=== PATIENT | female | born 1995 | race Caucasian/White ===

== ENCOUNTER 2024-02-26 20:00 | Emergency (ER) | payer BC, SELFPAY ==
--- NOTE | ~2024-02-26 | US_ITS ---
EXAMINATION: US OB transvaginal DATE: 02/26/2024 22:35 INDICATION: Vaginal bleeding during first trimester TECHNIQUE: Real-time pelvic ultrasound utilizing both a transvaginal and transabdominal probe was pe rformed. The interpreting radiologist was not present for the study. COMPARISON: None. FINDINGS: The uterus measures 9.1 x 5.1 x 5.9 cm. There is an intrauterine gestational sac with double decidua l sign and internal yolk sac but no discernible pole yet apparent. The mean sac diameter measur es 8 mm, which correlates with an estimated gestational age of 5 weeks and 4 days. The right ovary measures 4.5 x 2.3 x 2.6 cm. The left ovary measures 2.6 x 1.9 x 2.1 cm. There are a few subcentimeter anechoic follicles in both ovaries. Larger 1.5 similar anechoic likely corpus luteu m cyst at the right ovary. Vascular flow identified at both ovaries on color Doppler. There is no dorota e fluid in the pelvis. IMPRESSION: 1. Single intrauterine gestational sac with yolk sac but no discernible pole which likely due t o early stage of . 2. Gestational age by ultrasound based on mean sac diameter of 5 weeks 4 day(s) +/- 4 day(s) with ul trasound estimated date of delivery (RITESH) of 10/24/2024. Reviewed, dictated and finalized at location A. IMPRESSION: 1. Single intrauterine gestational sac with yolk sac but no discernible p ole which likely due to early stage of . 2. Gestational age by ultrasound based on mean sac diameter of 5 weeks 4 day(s ) +/- 4 day(s) with ultrasound estimated date of delivery (RITESH) of 10/24/2024.
[2024-02-26 20:01] VITALS: BP 143/81; PULSE 91; RESP 15; TEMP 36.4; O2SAT 100
[2024-02-26 20:38] LABS: Basophils Percent Auto 0.4 % (0.2-1.2); Eosinophils Absolute Auto 0.2 K/mm3 (0-0.3); Eosinophils Percent Auto 1.9 % (0-4.4); Hematocrit 41.5 % (37.0-47.0); Hemoglobin 14.2 g/dL (12.0-15.0); Immature Granulocyte Absolute 0.02 K/mm3 (0.00-0.031); Immature Granulocyte Percent A 0.2 % (0-0.5); Lymphocytes Absolute Auto 2.67 K/mm3 (0.9-3.2); Lymphocytes Percent Auto 29.6 % (18.3-44.2); Mean Corpuscular HGB Conc 34.2 g/dl (32-36); Mean Corpuscular Hemoglobin 29.9 pg (26-34); Mean Corpuscular Volume 87.4 fl (80-100); Mean Platelet Volume 9.9 fl (7.4-10.4); Monocytes Absolute Auto 0.7 K/mm3 (0.1-0.6); Monocytes Percent Auto 7.5 % (2.6-8.5); Neutrophils Absolute Auto 5.5 K/mm3 (1.3-6.7); Neutrophils Percent Auto 60.4 % (45.5-73.1); Platelet Count Result 235 k/mm3 (150-375); Red Blood Count 4.75 M/mm3 (4.2-5.4); Red Cell Distribution Width 12.8 % (11.5-14.5)
--- NOTE | 2024-02-26 20:39 | ED.FEMALEGU ---
HPI - Female Genitourinary General Chief complaint: Vaginal Bleeding Stated complaint: vaginal bleeding, 6.5 weeks Time Seen by Provider: 02/26/24 20:20 Source: patient Mode of arrival: ambulatory Limitations: no limitations History of Present Illness HPI Narrative: This is a 28-year-old female who presents to the ED with chief complaint of vaginal spotting onset today. Patient reports that she is around 6 and half weeks on following with OB at [facility]. Patient states she is A1, with spontaneous miscarriage in the past around weeks. She is concerned for possible ectopic as she had slight cramping earlier. She reports the pain is not been severe. States that she has seen spotting on multiple toilet paper wipes. Denies associated sweats, nausea, vomiting, urinary symptoms, fevers, chills. Related Data Allergies Allergy/AdvReac Type Severity Reaction Status Date / Time No Known Allergies Allergy Unverified 08/02/16 14:19 Review of Systems Review of Systems: All systems as dictated in HPI Exam Narrative: GENERAL: Well-appearing, well-nourished, and in no acute distress. HEAD: Normocephalic, atraumatic. EYES: PERRLA and EOMI. ENT: Nares clear, no rhinorrhea or epistaxis. Mucous membranes moist. Oropharynx without tonsillar hypertrophy exudate or other lesions. NECK: Supple. No adenopathy or masses. CHEST: No respiratory distress. Clear to auscultation. No wheezes rales or rhonchi HEART: Regular rate and rhythm. No murmur heard. Normal peripheral pulses. ABDOMEN: Soft, nontender, nondistended, normal active bowel sounds. MSK: Normal range of motion. No edema. SKIN: Warm, dry, no rash. NEURO: Alert and oriented x3. No focal deficits. PSYCH: Normal mood and affect. Course Vital Signs Vital signs: Vital Signs Temperature 97.5 F L 02/26/24 20:01 Pulse Rate 91 02/26/24 20:01 Respiratory Rate 15 02/26/24 20:01 Blood Pressure 143/81 H 02/26/24 20:01 Pulse Oximetry 100 02/26/24 20:01 Oxygen Delivery Room Air 02/26/24 20:01 Temperature 97.5 F L 02/26/24 20:01 Pulse Rate 64 02/26/24 22:00 Respiratory Rate 15 02/26/24 22:00 Blood Pressure 127/76 02/26/24 22:00 Pulse Oximetry 100 02/26/24 22:00 Oxygen Delivery Room Air 02/26/24 20:01 MDM - Female Genitourinary MDM Narrative Medical decision making narrative: This is a 28-year-old female who presents to the ED with chief complaint of vaginal spotting, and reports that she is around 6 weeks . She has had a miscarriage in the past and is here today to make sure she is not having ectopic . Vitals are normal. Exam is benign. She does not appear to have acute abdomen. Lab work is unremarkable overall. Transvaginal ultrasound: IMPRESSION: 1. Single intrauterine gestational sac with yolk sac but no discernible pole which likely due to early stage of . 2.? Gestational age by ultrasound based on mean sac diameter of 5 weeks 4 day(s) +/- 4 day(s) with ultrasound estimated date of delivery (RITESH) of 10/24/2024.. Symptoms and presentation consistent with vaginal bleeding during . Discussed with patient that there is no evidence of ectopic today, however it is still concerning that she had some spotting and miscarriage is still possible. She has close follow-up with her OB and will call them tomorrow for recheck. Pt will be discharged in stable condition. Return precautions given and supportive measures discussed. Pt is understanding and agreeable with plan for discharge and follow-up with PCP/OB Lab Data 02/26/24 20:29 02/26/24 20:29 Labs: Lab Results 02/26/24 Range/Units 20:29 WBC 9.0 (4.5-10.0) K/mm3 RBC 4.75 (4.2-5.4) M/mm3 Hgb 14.2 (12.0-15.0) g/dL Hct 41.5 (37.0-47.0) % MCV 87.4 (80-100) fl MCH 29.9 (26-34) pg MCHC 34.2 (32-36) g/dl RDW 12.8 (11.5-14.5) % Plt Count 235 (150-375) k/mm3
[2024-02-26 20:48] LABS: Prothrombin Time 13.3 Seconds (11.1-14.7)
[2024-02-26 20:49] LABS: Partial Thromboplastin Time 29.6 Seconds (22.3-36.8)
[2024-02-26 21:39] LABS: Alanine Aminotransferase 26 U/L (6-35); Albumin Level 4.8 g/dL (3.5-5.1); Alkaline Phosphatase 86 U/L (38-126); Anion Gap 10 mmol/L (4-12); Aspartate Amino Transferase 24 U/L (14-36); Bilirubin,Total 0.5 mg/dL (0.2-1.3); Blood Urea Nitrogen 14 mg/dL (7-17); Calcium 10.2 mg/dL (8.4-10.2); Carbon Dioxide 24 mmol/L (22-30); Chloride 103 mmol/L (98-107); Estimated CRCL calculation 104 ml/min; Estimated Glomerular Filt Rate > 60; Glucose 102 mg/dL (65-110); Potassium 4.1 mmol/L (3.4-5.0); Sodium 137 mmol/L (137-145)
[2024-02-26 22:00] VITALS: BP 127/76; PULSE 64; RESP 15; O2SAT 100
[2024-02-26 23:11] VITALS: BP 128/76; PULSE 67; RESP 15; TEMP 36.9; O2SAT 100
== END 2024-02-26 23:12 | disposition home or self-care (01) ==
PROVIDERS: Emergency Medicine; Emergency Provider Physician Assistant
DX: O20.0 Threatened abortion (principal); Z3A.01 Less than 8 weeks gestation of pregnancy
CPT/HCPCS: 36415; 76817; 80053; 84702; 85025; 85461; 85610; 85730; 86850; 86900; 86901; 99284

== ENCOUNTER 2024-02-28 16:45 | Outpatient (CLI) | payer BC, SELFPAY ==
[2024-02-29 05:29] LABS: Progesterone 8.4 ng/mL
== END 2024-02-28 16:46 | disposition home or self-care (01) ==
DX: O20.9 Hemorrhage in early pregnancy, unspecified (principal); Z3A.00 Weeks of gestation of pregnancy not specified
CPT/HCPCS: 36415; 84144; 84702